=== PATIENT | male | born 1995 | race Caucasian/White ===

== ENCOUNTER 2019-07-07 15:33 | Emergency (ER) | payer SELFPAY ==
[2019-07-07] MEDS ORDERED: Ondansetron 4 MG/2 ML SDV IVPUSH ONE (15:57)
--- NOTE | 2019-07-07 17:52 | EDM.PDOC ---
ED HPI GENERAL MEDICAL PROBLEM - General Chief Complaint: Drug or Alcohol Abuse Stated Complaint: OVERDOSE Time Seen by Provider: 07/07/19 15:50 Source of Information: Reports: Patient, EMS History Limitations: Reports: Altered Mental Status - History of Present Illness INITIAL COMMENTS - FREE TEXT/NARRATIVE: Patient is a 23-year-old male who was found with agonal and apneic breathing secondary to heroin overdose prior to arrival. Patient was given bystander CPR before stitcher utility arrival. Was given Narcan which she has reversed is apnea and loss of consciousness. Patient is alert and oriented in the emergency department and denies using any other drugs besides marijuana. He denies any trauma. Onset: Today, Sudden Severity: Severe Improves with: Reports: Other (Narcan) Associated Symptoms: Reports: No Other Symptoms - Related Data Allergies Allergy/AdvReac Type Severity Reaction Status Date / Time No Known Allergies Allergy Verified 07/07/19 15:39 Home Meds: Home Meds . [No Known Home Meds] 07/07/19 [History] Past Medical History - Past Health History Medical/Surgical History: Denies Medical/Surgical History - Infectious Disease History Infectious Disease History: Reports: None Social & Family History - Family History Family Medical History: Noncontributory - Tobacco Use Smoking Status *Q: Current Every Day Smoker Years of Tobacco use: 5 Packs/Tins Daily: 1 - Caffeine Use Caffeine Use: Reports: Coffee - Recreational Drug Use Recreational Drug Use: Yes Recreational Drug Type: Reports: Heroin, Marijuana/Hashish ED ROS GENERAL - Review of Systems Review Of Systems: Comprehensive ROS is negative, except as noted in HPI. - Physical Exam Exam: See Below Exam Limited By: No Limitations General Appearance: Alert, No Apparent Distress Head Exam: Atraumatic, Normocephalic Neck: Normal Inspection Respiratory/Chest: No Respiratory Distress, Lungs Clear, Normal Breath Sounds Cardiovascular: Normal Peripheral Pulses, Regular Rate, Rhythm GI/Abdominal: Normal Bowel Sounds, Soft, Non-Tender, No Organomegaly Neuro Exam (Abbreviated): Alert, Oriented Back Exam: Normal Inspection Extremities: Normal Inspection Psychiatric: Normal Affect, Normal Mood Skin Exam: Warm, Dry, Intact Course - Vital Signs Last Recorded V/S: Last Vital Signs Temp 35.3 C 07/07/19 15:40 Pulse 95 07/07/19 17:22 Resp 16 07/07/19 17:22 BP 129/56 L 07/07/19 17:22 Pulse Ox 98 07/07/19 17:22 - Orders/Labs/Meds Orders: Active Orders 24 hr Category Date Time Status DRUG SCREEN, URINE [URCHEM] Stat Lab 07/07/19 17:48 Received Labs: Laboratory Tests 07/07/19 Range/Units 15:43 Ethyl Alcohol <3 mg/dL Meds: Medications Discontinued Medications Generic Name Dose Route Start Last Admin Trade Name Hans PRN Reason Stop Dose Admin Ondansetron HCl 4 mg 07/07/19 15:57 07/07/19 16:05 Zofran IVPUSH 07/07/19 15:58 4 mg ONETIME ONE Administration - Re-Assessments/Exams Free Text/Narrative Re-Assessment/Exam: 07/07/19 17:58 Patient was observed for approximately 3 hours with no deterioration of his mental status. Urging at this time to the care of his family who assured me they will watch him tonight. Him to the ED if there is any change in his mental status. Departure - Departure Time of Disposition: 17:59 Disposition: Home, Self-Care 01 Condition: Good Clinical Impression: Drug abuse, Accidental heroin overdose - Discharge Information Instructions: Drug Overdose Forms: ED Department Discharge Additional Instructions: The following information is given to patients seen in the emergency department who are being discharged to home. This information is to outline your options for follow-up care. We provide all patients seen in our emergency department with a follow-up referral. The need for follow-up, as well as the timing and circumstances, are variable depending upon the specifics of your emergency department visit. If you don't have a primary care physician on staff, we will provide you with a referral. We always advise you to contact your personal physician following an emergency department visit to inform them of the circumstance of the visit and for follow-up with them and/or the need for any referrals to a consulting specialist. The emergency department will also refer you to a specialist when appropriate. This referral assures that you have the opportunity for follow-up care with a specialist. All of these measure are taken in an effort to provide you with optimal care, which includes your follow-up. Under all circumstances we always encourage you to contact your private physician who remains a resource for coordinating your care. When calling for follow-up care, please make the office aware that this follow-up is from your recent emergency room visit. If for any reason you are refused follow-up, please contact the [facility] Emergency Department at and asked to speak to the emergency department charge nurse. Sepsis Event Note - Evaluation Sepsis Screening Result: No Definite Risk - Focused Exam Vital Signs: Vital Signs Temp Pulse Resp BP Pulse Ox 07/07/19 17:22 95 16 129/56 L 98 07/07/19 16:05 85 16 123/71 99 07/07/19 15:40 35.3 C 93 18 150/95 H 100 Date Exam was Performed: 07/07/19 Time Exam was Performed: 17:57 - My Orders Last 24 Hours: My Active Orders 07/07/19 17:48 DRUG SCREEN, URINE [URCHEM] Stat - Assessment/Plan Last 24 Hours: My Active Orders 07/07/19 17:48 DRUG SCREEN, URINE [URCHEM] Stat
== END 2019-07-07 18:10 | disposition home or self-care (01) ==
LOC: MW.ED 15:33
DX: T40.1X1A Poisoning by heroin, accidental (unintentional), initial encounter (principal); R41.82 Altered mental status, unspecified; F11.10 Opioid abuse, uncomplicated; F17.210 Nicotine dependence, cigarettes, uncomplicated
CPT/HCPCS: 36415; 80305; 80320; 93005; 96374; 99284; J2405; 99283; G0480

== ENCOUNTER 2020-10-06 15:44 | Emergency (ER) | payer OTHER ==
[2020-10-06] MEDS ORDERED: Diphtheria,Pertussis(Acell),Tetanus Vaccine 0.5 ML Syringe IM ONE (16:57)
--- NOTE | 2020-10-06 17:01 | CR ---
INDICATION: Injury to left thumb. TECHNIQUE: Left hand, three views. COMPARISON: None FINDINGS: Bones: Alignment is normal. No fractures or bone lesions. Joint spaces: No articular erosion. No periarticular osteopenia. Soft tissues: No radiopaque foreign body. IMPRESSION: No fracture or malalignment. Dictated by Jose Bergman MD @ Oct 06 2020 4:57PM Signed by Dr. Jose Bergman @ Oct 06 2020 4:59PM
[2020-10-06] MEDS ORDERED: Bupivacaine 0.5% 10 ML SDV INJECT ONE (17:42)
--- NOTE | 2020-10-06 18:09 | EDM.PDOC ---
ED HPI GENERAL MEDICAL PROBLEM - General Chief Complaint: Upper Extremity Injury/Pain Stated Complaint: SMASHED LFT THUMB Time Seen by Provider: 10/06/20 15:47 Source of Information: Reports: Patient History Limitations: Reports: No Limitations - History of Present Illness INITIAL COMMENTS - FREE TEXT/NARRATIVE: HISTORY AND PHYSICAL: History of present illness: Patient is a 24-year-old male who presents to the ED today with concern of left thumb injury that occurred just prior to arrival to the emergency room. 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 Patient states that he wrapped his thumb up and immediately came to the emergency room. Patient states that he is not up-to-date on tetanus and would like to update this today. Patient states he has been fully able to move the thumb but does have pain with doing so. Patient denies fever, chills, chest pain, shortness of breath, or cough. Denies headache, neck stiff ness, change in vision, syncope, or near syncope. Denies nausea, vomiting, abdominal pain, diarrhea, constipation, or dysuria. Has not noted any blood in urine or stool. Patient has been eating and drinking appropriately. Review of systems: As per history of present illness and below otherwise all systems reviewed and negative. Past medical history: As per history of present illness and as reviewed below otherwise noncontributory. Surgical history: As per history of present illness and as reviewed below otherwise noncontributory. Social history: See social history for further information Family history: As per history of present illness and as reviewed below otherwise noncontributory. Physical exam: General: Patient is alert, oriented, and in no acute distress. Patient sitting comfortably on exam table. HEENT: Atraumatic, normocephalic, pupils equal and reactive bilaterally, negative for conjunctival pallor or scleral icterus, mucous membranes moist, TMs normal bilaterally, throat clear, neck supple, nontender, trachea midline. No drooling or trismus noted. No meningeal signs. No hot potato voice noted. Lungs: Clear to auscultation, breath sounds equal bilaterally, chest nontender. Heart: S1S2, regular rate and rhythm without overt murmur Abdomen: Soft, nondistended, nontender. Negative for masses or hepatosplenom egaly. Negative for costovertebral tenderness. Pelvis: Stable nontender. Genitourinary: Deferred. Rectal: Deferred. Skin: Intact, warm, dry. No lesions or rashes noted. Extremities: The base of the left thumb appears 1/2 avulsed with possible underlying laceration which is difficult to fully visualize due to pain. Patient does have full ROM of the digit without deficit with intact sensation to light and deep touch. Range of motion of the remaining left upper extremity without pain or deficit. Radial pulses grossly intact of the left upper extremity with capillary refill less than 2 seconds. Otherwise, atraumatic, negative for cords or calf pain. Neurovascular unremarkable. Neuro: Awake, alert, oriented. Cranial nerves II through XII unremarkable. Cerebellum unremarkable. Motor and sensory unremarkable throughout. Exam nonfocal. Notes: Patient left the ED AMA prior to discharge Diagnostics: Hand XR Therapeutics: Tdap (Patient did not receive any additional therapeutics as he left AMA prior) Prescription: Left AMA prior to discharge Impression: Nailbed avulsion cannot r/o laceration, left thumb Plan: Patient left the ED AMA prior to discharge Definitive disposition and diagnosis as appropriate pending reevaluation and review of above. 6 Pain Score (Numeric/FACES): 6 - Related Data Allergies Allergy/AdvReac Type Severity Reaction Status Date / Time lidocaine [From Emla] Allergy Other Verified 10/06/20 16:23 prilocaine [From Emla] Allergy Other Verified 10/06/20 16:23 Home Meds: Home Meds . [No Known Home Meds] 07/07/19 [History] Past Medical History - Past Health History Medical/Surgical History: Denies Medical/Surgical History Cardiovascular History: Reports: None Respiratory History: Reports: None Gastrointestinal History: Reports: None Genitourinary History: Reports: None Neurological History: Reports: None Psychiatric History: Reports: None Hematologic History: Reports: None Oncologic (Cancer) History: Reports: None Dermatologic History: Reports: None - Infectious Disease History Infectious Disease History: Reports: None - Past Surgical History Male Surgical History: Reports: Other (See Below) Other Male Surgeries/Procedures: varicose veins removed in groin patient reports Other Musculoskeletal Surgeries/Procedures:: right ring finger surgery. Social & Family History - Family History Family Medical History: No Pertinent Family History - Tobacco Use Tobacco Use Status *Q: Current Every Day Tobacco User Years of Tobacco use: 10 Packs/Tins Daily: 1 - Caffeine Use Caffeine Use: Reports: Coffee, Energy Drinks, Soda - Recreational Drug Use Recreational Drug Use: No Review of Systems - Review of Systems Review Of Systems: Comprehensive ROS is negative, except as noted in HPI. ED EXAM, GENERAL - Physical Exam Exam: See Below (see dictation) Course - Vital Signs Last Recorded V/S: Last Vital Signs Temp 97.4 F 10/06/20 16:17 Pulse 87 10/06/20 16:17 Resp 18 10/06/20 16:17 BP 120/61 10/06/20 16:17 Pulse Ox 96 10/06/20 16:17 - Orders/Labs/Meds Orders: Active Orders 24 hr Category Date Time Status Vaccines to be Administered [RC] PER UNIT ROUTINE Care 10/06/20 16:57 Active Meds: Medications Discontinued Medications Generic Name Dose Route Start Last Admin Trade Name Waldoq PRN Reason Stop Dose Admin Bupivacaine HCl 10 ml 10/06/20 17:42 Bupivacaine 0.5% 10 Ml Sdv INJECT 10/06/20 17:43 ONETIME ONE Diphtheria/Tetanus/Acell Pertussis 0.5 ml 10/06/20 16:57 10/06/20 17:55 Diphtheria,Pertussis(Acell),Tetanus Vaccine 0.5 Ml Syringe IM 10/06/20 16:58 0.5 ml .ONCE ONE Administration Lidocaine HCl 5 ml 10/06/20 17:42 Lidocaine 1% 5 Ml Sdv INJECT 10/06/20 17:43 ONETIME ONE Departure - Departure Time of Disposition: 18:04 Disposition: Against Medical Advice 07 Clinical Impression: Nailbed avulsion - Discharge Information Referrals: PCP,None [Primary Care Provider] - Additional Instructions: Patient left the ED AGAINST MEDICAL ADVICE prior to discharge Sepsis Event Note (ED) - Evaluation Sepsis Screening Result: No Definite Risk - Focused Exam Vital Signs: Vital Signs Temp Pulse Resp BP Pulse Ox 10/06/20 16:17 97.4 F 87 18 120/61 96 - My Orders Last 24 Hours: My Active Orders 10/06/20 16:57 Vaccines to be Administered [RC] PER UNIT ROUTINE - Assessment/Plan Last 24 Hours: My Active Orders 10/06/20 16:57 Vaccines to be Administered [RC] PER UNIT ROUTINE
== END 2020-10-06 18:11 | disposition left against medical advice (07) ==
LOC: MW.ED 15:44
DX: S61.102A Unspecified open wound of left thumb with damage to nail, initial encounter (principal); Z23 Encounter for immunization; Z88.4 Allergy status to anesthetic agent; Z72.0 Tobacco use; W23.0XXA Caught, crushed, jammed, or pinched between moving objects, initial encounter
CPT/HCPCS: 73130-26-LT; 73130-LT; 90471; 90715; 99283-25

== ENCOUNTER 2020-10-06 19:37 | Emergency (ER) | payer OTHER ==
[2020-10-06] MEDS ORDERED: Octyl 2-Cyanoacrylate 1 APPLIC TUBE ONE (20:22)
[2020-10-06] MEDS ORDERED: Octyl 2-Cyanoacrylate 1 APPLIC TUBE TOP ONE (20:38)
[2020-10-06] MEDS ORDERED: Bacitracin Oint 1 GM U/D Packet TOP ONE (20:39)
--- NOTE | 2020-10-06 21:07 | EDM.PDOC ---
ED HPI GENERAL MEDICAL PROBLEM - General Chief Complaint: Laceration Stated Complaint: SMASHED RT THUMB Time Seen by Provider: 10/06/20 20:42 - History of Present Illness INITIAL COMMENTS - FREE TEXT/NARRATIVE: HISTORY AND PHYSICAL: History of present illness: This is a 24 old gentleman who presents ER today secondary to an injury to his left thumb that occurred while he was working on his vehicle. Patient was seen here earlier today and had a negative x-ray. Patient reports tetanus currently up-to-date. Patient return to the ER but is yet to leave earlier today secondary to childcare issues. Patient reports no neurological deficits. Patient reports pain and discomfort isolated to his nailbed of his left thumb. Review of systems: As per history of present illness and below otherwise all systems reviewed and negative. Past medical history: As per history of present illness and as reviewed below otherwise noncontributory. Surgical history: As per history of present illness and as reviewed below otherwise noncontributory. Social history: No reported history of drug or alcohol abuse. Family history: As per history of present illness and as reviewed below otherwise noncontributory. Physical exam: This patient was seen and evaluated during the 2019 SARS-CoV-2 novel coronavirus pandemic period. Community viral transmission is ongoing at time of this encounter and the emergency department is operating under pandemic response procedures. Constitutional: Patient is oriented to person, place, and time. Appears well- developed and well-nourished. No distress. HEENT: Moist mucous membranes Head: Normocephalic and atraumatic Eyes: Right eye exhibits no discharge. Left eye exhibits no discharge. No scleral icterus Neck: Normal range of motion. No tracheal deviation present. Cardiovascular: Normal rate and regular rhythm. Pulmonary: Effort normal, no respiratory distress. Abdominal: No distention Musculoskeletal: Normal range of motion Neurologic: Alert and oriented to person, place and time. Skin: [place], warm and dry. Psychiatric: Normal mood and affect. Behavior is normal. Judgment and thought content normal. Nursing note and vital signs have been reviewed Patient's ER physical exam is significant for laceration through patient's proximal aspect of his left nailbed. It appears that the proximal half of his fingernail has been avulsed off and is nonexistent and there is a laceration through the nailbed itself. There is fragment of fingernail within the cuticle of the medial aspect of the nailbed itself. Diagnostics: X-ray reviewed from earlier today. No fracture of thumb. Therapeutics: Procedure note: Wound has been irrigated with 1 L of NSS and soap scrub. Utilizing 2 cc of 1% lidocaine local anesthesia was provided to the thumb itself. Tourniquet was applied. Fingernail was removed utilizing blunt dissection. 3x5.0 rapid absorbable gut was utilized to approximate edges of the fingernail bed. Removed fingernail was trimmed and reinserted in through the nailbed to keep the cuticle open and was Dermabond in place. Assessment and plan: 24-year-old with a injury to his left thumb. X-ray negative for fracture. Tetanus up-to-date. Wound sutured and repaired as above. Bulky dressing applied with Telfa dressing. Patient be discharged with Keflex and ibuprofen. I have asked the patient to return to the ED so I can eyeball him in 2 to 3 days since he does not have a family doctor who can go to. I have also instructed him that if he is able to get a family doctor in the meantime that it would be preferable that he see his family doctor to establish care. Definitive disposition and diagnosis as appropriate pending reevaluation and review of above. L thumb Pain Score (Numeric/FACES): 6 - Related Data Allergies Allergy/AdvReac Type Severity Reaction Status Date / Time lidocaine [From Emla] Allergy Other Verified 10/06/20 19:42 prilocaine [From Emla] Allergy Other Verified 10/06/20 19:42 Home Meds: Home Meds Ibuprofen 600 mg PO Q6HR PRN #30 tablet 10/06/20 [Rx] cephALEXin [Keflex] 500 mg PO Q8H #15 cap 10/06/20 [Rx] Past Medical History - Past Health History Medical/Surgical History: Denies Medical/Surgical History Cardiovascular History: Reports: None Respiratory History: Reports: None Gastrointestinal History: Reports: None Genitourinary History: Reports: None Neurological History: Reports: None Psychiatric History: Reports: None Hematologic History: Reports: None Oncologic (Cancer) History: Reports: None Dermatologic History: Reports: None - Infectious Disease History Infectious Disease History: Reports: None - Past Surgical History Male Surgical History: Reports: Other (See Below) Other Male Surgeries/Procedures: varicose veins removed in groin patient reports Other Musculoskeletal Surgeries/Procedures:: right ring finger surgery. Social & Family History - Family History Family Medical History: No Pertinent Family History - Caffeine Use Caffeine Use: Reports: Coffee - Recreational Drug Use Recreational Drug Use: No ED ROS GENERAL - Review of Systems Review Of Systems: See Below ED EXAM, SKIN/RASH Exam: See Below ED SKIN PROCEDURES - Laceration/Wound Repair Left Digit - 1st (Thumb) Appearance: Irregular Distal NVT: Neuro & Vascular Intact Anesthetic Type: Local Local Anesthesia - Lidocaine (Xylocaine): 1% Plain Local Anesthetic Volume: 2cc Skin Prep: Saline, Sterile Drape Saline Irrigation (cc's): 1,000 Exploration/Debridement/Repair: Wound Explored, In a Bloodless Field, Explored to Base, Moderate Debridement, Wound Margins Revised, Multiple Flaps Aligned Closed with: Sutures Lac/Wound length In cm: 4 Suture Size: 5-0 # of Sutures: 3 (Rapid absorbable gut) Suture Type: Interrupted Course - Vital Signs Last Recorded V/S: Last Vital Signs Temp 97.9 F 10/06/20 19:42 Pulse 79 10/06/20 19:42 Resp 18 10/06/20 19:42 BP 131/79 10/06/20 19:42 Pulse Ox 97 10/06/20 19:42 - Orders/Labs/Meds Meds: Medications Discontinued Medications Generic Name Dose Route Start Last Admin Trade Name Hans PRN Reason Stop Dose Admin Bacitracin 1 dose 10/06/20 20:39 10/06/20 20:53 Bacitracin Oint 1 Gm U/D Packet TOP 10/06/20 20:40 Not Given ONETIME ONE Lidocaine HCl Confirm 10/06/20 19:54 10/06/20 20:53 Lidocaine 1% 5 Ml Sdv Administered 10/06/20 19:55 Not Given Dose 5 ml .ROUTE .STK-MED ONE Lidocaine HCl 5 ml 10/06/20 20:38 10/06/20 20:53 Lidocaine 1% 5 Ml Sdv INJECT 10/06/20 20:39 5 ml ONETIME ONE Administration Octyl Cyanoacrylate Confirm 10/06/20 20:22 10/06/20 20:52 Octyl 2-Cyanoacrylate 1 Applic Tube Administered 10/06/20 20:23 Not Given Dose 2 applic .ROUTE .STK-MED ONE Octyl Cyanoacrylate 2 applic 10/06/20 20:38 10/06/20 20:50 Octyl 2-Cyanoacrylate 1 Applic Tube TOP 10/06/20 20:39 2 applic ONETIME ONE Administration Departure - Departure Time of Disposition: 21:09 Disposition: Home, Self-Care 01 Condition: Good Clinical Impression: Nailbed avulsion Nailbed laceration, finger Qualifiers: Encounter type: initial encounter Qualified Code(s): S61.319A - Laceration without foreign body of unspecified finger with damage to nail, initial encounter Injury of left thumb Qualifiers: Encounter type: initial encounter Qualified Code(s): S69.92XA - Unspecified injury of left wrist, hand and finger(s), initial encounter - Discharge Information Instructions: Laceration Care, Adult Referrals: PCP,None [Primary Care Provider] - Additional Instructions: You were seen and evaluated in the ER today secondary to an injury to your left thumb. You will be given Keflex 500 mg to take 3 times a day for the next 5 days to help prevent infection. You also be given ibuprofen to assist with pain and discomfort. Please keep the bulky dressing on to protect your thumb. He can remove it in 24 hours and just apply a Band-Aid. You will need to follow-up in 2 days for wound check. I will be available here in the ED after 7 PM on Wednesday for reevaluation. When you come, please asked to speak to the charge nurse or myself so that we can evaluate your wound quickly for you. The following information is given to patients seen in the emergency department who are being discharged to home. This information is to outline your options for follow-up care. We provide all patients seen in our emergency department with a follow-up referral. The need for follow-up, as well as the timing and circumstances, are variable depending upon the specifics of your emergency department visit. If you don't have a primary care physician on staff, we will provide you with a referral. We always advise you to contact your personal physician following an emergency department visit to inform them of the circumstance of the visit and for follow-up with them and/or the need for any referrals to a consulting specialist. The emergency department will also refer you to a specialist when appropriate. This referral assures that you have the opportunity for follow-up care with a specialist. All of these measure are taken in an effort to provide you with optimal care, which includes your follow-up. Under all circumstances we always encourage you to contact your private physician who remains a resource for coordinating your care. When calling for follow-up care, please make the office aware that this follow-up is from your recent emergency room visit. If for any reason you are refused follow-up, please contact the [facility] Emergency Department at and asked to speak to the emergency department charge nurse. [facility] [address] [place] [address] [id number] [address] [id number] Sepsis Event Note (ED) - Evaluation Sepsis Screening Result: No Definite Risk - Focused Exam Vital Signs: Vital Signs Temp Pulse Resp BP Pulse Ox 10/06/20 19:42 97.9 F 79 18 131/79 97
[2020-10-06] MEDS ORDERED: Cephalexin 500 MG Cap PO ONE (21:11)
[2020-10-06] MEDS ORDERED: Ibuprofen 600 MG Tab PO ONE (21:11)
== END 2020-10-06 21:48 | disposition home or self-care (01) ==
LOC: MW.ED 19:37
DX: S61.112A Laceration without foreign body of left thumb with damage to nail, initial encounter (principal); Z88.4 Allergy status to anesthetic agent; W23.0XXA Caught, crushed, jammed, or pinched between moving objects, initial encounter
CPT/HCPCS: 11760; 99283; A9270